=== PATIENT | female | born 1965 | race Caucasian/White ===

== ENCOUNTER 2023-07-22 23:37 | Emergency (ER) | payer BC ==
[~2023-07-22] VITALS: Ht 162.6 cm; Wt 107.3 kg
[2023-07-22] MEDS ORDERED: ipratropium/albuterol 3ml nebule NEB ONE (23:45)
[2023-07-22] MEDS ORDERED: albuterol 2.5 MG/3 ML nebule ONE (23:48)
[2023-07-22] MEDS ORDERED: albuterol 2.5 MG/3 ML nebule NEB ONE (23:50)
[2023-07-22 23:54] VITALS: PULSE 90; RESP 20; O2SAT 100
[2023-07-23 00:04] VITALS: PULSE 84; RESP 18
[2023-07-23] MEDS ORDERED: methylPREDNISolone sod succ 125mg/2ml vial IV ONE (00:05)
[2023-07-23 01:13] LABS: EOSINOPHILS # (AUTO) 0.1 X10'3 (0-0.9)
[2023-07-23 01:14] LABS: BASOPHILS % (AUTO) 0.5 % (0-1); EOSINOPHILS % (AUTO) 1.9 % (0-6); HEMATOCRIT 36.1 % (35.0-45.0); HEMOGLOBIN 11.9 g/dl (12.0-16.0); LYMPHOCYTES # (AUTO) 1.8 X10'3 (1.1-4.8); LYMPHOCYTES % (AUTO) 31.7 % (21-51); MEAN CORPUSCULAR HEMOGLOBIN 28.5 PG (27.0-31.0); MEAN CORPUSCULAR VOLUME 86.4 FL (78-98); MEAN PLATELET VOLUME 7.7 FL (7.4-10.4); MONOCYTES # (AUTO) 0.7 X10'3 (0-0.9); MONOCYTES % (AUTO) 11.9 % (2-12); NEUTROPHILS # (AUTO) 3.1 X10'3 (1.8-7.7); PLATELET COUNT 148 X10'3 (140-440); RED BLOOD COUNT 4.18 X10'6 (4.20-5.60); RED CELL DISTRIBUTION WIDTH 16.7 % (11.5-14.5); WHITE BLOOD COUNT 5.6 X10'3 (4.5-11.0)
[2023-07-23 01:25] LABS: ALANINE AMINOTRANSFERASE 84 U/L (12-78); ALBUMIN 2.7 G/DL (3.4-5.0); ALBUMIN/GLOBULIN RATIO 0.6 (1.1-1.5); ALKALINE PHOSPHATASE 260 IU/L (46-116); ANION GAP 11 (8-16); ASPARTATE AMINO TRANSFERASE 77 U/L (10-37); BILIRUBIN,TOTAL 0.6 MG/DL (0.1-1.0); BLOOD UREA NITROGEN 4 MG/DL (7-18); BUN/CREATININE RATIO 4.7 (10.0-20.0); CALCIUM 8.2 MG/DL (8.5-10.1); CHLORIDE 100 MMOL/L (99-107); CREATININE 0.86 MG/DL (0.40-0.90); GLUCOSE 91 MG/DL (70-104); POTASSIUM 3.5 MMOL/L (3.5-5.1); SODIUM 137 MMOL/L (135-145); TOTAL CARBON DIOXIDE 26.1 MMOL/L (24-32); TOTAL PROTEIN 7.3 G/DL (6.4-8.2); eCRCL 61 ML/MIN; eGFR 68 ML/MIN
[2023-07-23 02:40] VITALS: BP 121/61; PULSE 95; RESP 16; O2SAT 100
[2023-07-23 02:48] VITALS: TEMP 98.3
== END 2023-07-23 02:51 | disposition home or self-care (01) ==
LOC: ER 23:38
DX: J45.998 Other asthma (principal); J98.4 Other disorders of lung
CPT/HCPCS: 36415; 71045; 80053; 84484; 85025; 93005; 94640; 96374; 99285; J2930; 94760